=== PATIENT | male | born 1990 | race Caucasian/White ===

== ENCOUNTER 2020-05-21 09:27 | Emergency (ER) | payer BC ==
[~2020-05-21] VITALS: Ht 165 cm; Wt 77.0 kg
[2020-05-21] MEDS ORDERED: LIDOCAINE 1% INJ 20 ML 20 ML VIAL ONE (09:38)
[2020-05-21] MEDS ORDERED: TETANUS,DIPTH,PERTUSS P/F (BOOSTRIX) 0.5 ML VIAL IM ONE (09:45)
--- NOTE | 2020-05-21 09:58 | ED Upper Extremity ---
General Chief Complaint: Laceration Stated Complaint: CUT FINGER Nursing Triage Note: ARRIVED VIA AMB TO ROOM 06 WITHOUT DIFFICULTY. COMPLAINS OF CUTTING HIS LEFT MIDDLE FINGER WITH A KNIFE. Nursing Sepsis Screen: No Definite Risk Source: patient Exam Limitations: no limitations History of Present Illness Date Seen by Provider: May 21, 2020 Time Seen by Provider: 09:37 Initial Comments Here with 2 cm laceration to the dorsum of the left third finger middle phalanx area. Caused by knife accidentally cutting when he was opening [employer] ckages. Denies other injury. Patient did clean it afterwards but bleeding continued so he presented for evaluation. [id number]. Onset: just prior to arrival (Proximally 30 minutes ago) Severity: mild Method of Injury: incised Modifying Factors: Improves With Immobilization; Worse With Movement Allergies and Home Medications Allergies Coded Allergies: No Known Drug Allergies (Unverified , 05/21/20) Patient Home Medication List Home Medication List Reviewed: Yes Review of Systems Constitutional: see HPI; No fever, No weakness Respiratory: no symptoms reported Cardiovascular: no symptoms reported Skin: see HPI; No change in color; lesions Psychiatric/Neurological: Denies Numbness, Denies Weakness Past Edsvqze-Lqigpg-Atsdft Hx Past Med/Social Hx: Reviewed Nursing Past Med/Soc Hx Patient Social History Alcohol Use: Occasionally Uses Recreational Drug Use: No Smoking Status: Never a Smoker Recent Foreign Travel: No Contact w/Someone Who Travel: No Recent Infectious Disease Expo: No Recent Hopitalizations: No Seasonal Allergies Seasonal Allergies: No Past Medical History Appendectomy, Orthopedic Respiratory: No Cardiac: No Neurological: No Genitourinary: No Gastrointestinal: No Musculoskeletal: No Endocrine: No HEENT: No Cancer: No Psychosocial: No Integumentary: No Family Medical History Reviewed Nursing Family Hx Physical Exam Vital Signs Vital Signs - First Documented 05/21/20 09:30 Temp 37.0 Pulse 86 Resp 16 B/P (MAP) 186/111 (136) Pulse Ox 100 O2 Delivery Room Air Capillary Refill : Less Than 3 Seconds Height, Weight, BMI Height: '" Weight: lbs. oz. kg; 28.00 BMI Method: General Appearance: WD/WN, no apparent distress Cardiovascular: regular rate, rhythm, no murmur Respiratory: lungs clear, normal breath sounds Hand: normal ROM, Left, laceration (1.5 cm laceration to the dorsum of the left finger middle phalanx with bleeding easily controlled with direct pressure. No other injury noted.) Neurologic/Psychiatric: alert, oriented x 3; No sensory deficit Procedures/Interventions Wound Location: Upper Extremities Other Wound Location Left third finger dorsum over middle phalanx Wound Length (cm): 1.5 Wound's Depth, Shape: linear Wound Explored: contaminated Betadine Prep?: Yes Anesthesia: 1% Lidocaine Volume Anesthetic (ccs): 3 Wound Debrided: minimal Suture: Prolene Suture Size: 4-0 Number of Sutures: 3 Layer Closure?: 1 Number Deep Layer Sutures: 0 Progress Cleaned with Betasept and saline. Irrigated. Anesthetized and closed with simple interrupted sutures. Tolerated procedure well with no complications. Covered with antibiotic ointment and bulky dressing. Progress/Results/Core Measures Results/Orders My Orders Orders - AMPARO PARRA MD Dipht,[place]([facility]),Tet Adult (Boostrix (05/21/20 09:45) Lidocaine 1% Inj 20 Ml (Xylocaine 1% Inj (05/21/20 09:38) Vital Signs/I&O 05/21/20 09:30 Temp 37.0 Pulse 86 Resp 16 B/P (MAP) 186/111 (136) Pulse Ox 100 O2 Delivery Room Air Blood Pressure Mean: 136 Progress Progress Note : Progress Note Seen and evaluated. Wound cleaned and closed. Tetanus updated. Discharged home with return precautions. Patient verbalized understanding of instructions and agreement with plan. Departure Impression Primary Impression: Laceration of finger of left hand without foreign body without damage to nail Qualified Codes: S61.213A - Laceration without foreign body of left middle finger without damage to nail, initial encounter Disposition: 01 HOME, SELF-CARE Condition: Improved Departure-Patient Inst. Decision time for Depature: 09:57 Patient Instructions: Laceration Repair With Stitches (DC) Add. Discharge Instructions: All discharge instructions reviewed with patient and/or family. Voiced unders tanding. Sutures out in 10 days. You may use antibiotic ointment and dressing over wound. Use bulky dressing to prevent flexion of the finger for the next week or so and then as needed. Return for worse pain, swelling, red streaks up the hand, foul-smelling drainage or other concerns as needed. It is okay to shower and gently wash your hands but do not soak wound for prolonged period of time in any body of water. AMPARO PARRA MD May 21, 2020 09:58
[2020-05-21 10:14] VITALS: BP 148/86
== END 2020-05-21 10:14 | disposition home or self-care (01) ==
LOC: ER 09:32
DX: S61.213A Laceration without foreign body of left middle finger without damage to nail, initial encounter (principal); Z23 Encounter for immunization; W26.0XXA Contact with knife, initial encounter
CPT/HCPCS: 12041; 90715